=== PATIENT | female | born 1955 | race African-American/Black ===

== ENCOUNTER → 2017-03-30 | Outpatient (CLI) | payer SELFPAY ==
[2017-03-30 10:35] LABS: ALANINE AMINOTRANSFERASE 35 U/L (9-52); ALBUMIN 4.4 g/dL (3.5-5.0); ALKALINE PHOSPHATASE 50 U/L (38-126); ASPARTATE AMINO TRANSFERASE 22 U/L (14-36); BILIRUBIN,DIRECT 0.3 mg/dL (0.0-0.4); BILIRUBIN,TOTAL 0.9 mg/dL (0.2-1.3); CHOLESTEROL 157.34 mg/dL (0-200); Direct HDL 62 mg/dL (>40); TOTAL PROTEIN 7.3 g/dL (6.3-8.2); TRIGLYCERIDES 61 mg/dL (<150)
[2017-03-30 10:49] LABS: DIRECT LDL 68 mg/dL (<100)
== END ==
LOC: OD 08:59
PROVIDERS: ATTEND Specialist
DX: Z95.2 Presence of prosthetic heart valve (principal); R06.02 Shortness of breath; I10 Essential (primary) hypertension; E78.4 Other hyperlipidemia; R09.89 Other specified symptoms and signs involving the circulatory and respiratory systems; I44.7 Left bundle-branch block, unspecified; Z79.899 Other long term (current) drug therapy
CPT/HCPCS: 36415; 80061; 80076